=== PATIENT | female | born 1950 | race Caucasian/White ===

== ENCOUNTER 2022-06-11 11:10 | Emergency (ER) | payer OTHER, MEDICARE ==
[~2022-06-11] VITALS: Ht 172.7 cm; Wt 120.2 kg
[2022-06-11] MEDS ORDERED: Percocet 5-3251 EACH PO (13:23)
== END 2022-06-11 13:51 | disposition home or self-care (01) ==
LOC: ER 11:10
DX: M25.571 Pain in right ankle and joints of right foot (principal); W18.09XA Striking against other object with subsequent fall, initial encounter; Z88.5 Allergy status to narcotic agent
CPT/HCPCS: 73610; A9270